=== PATIENT | male | born 1995 | race Caucasian/White ===

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

== ENCOUNTER 2017-03-09 12:32 | Emergency (ER) | payer OTHER ==
[~2017-03-09] VITALS: Ht 180.3 cm; Wt 81.2 kg
[2017-03-09] MEDS ORDERED: TAMIFLU75 MG PO (13:42)
[2017-03-09] MEDS ORDERED: ONDANSETRON ODT4 MG SL (14:50)
== END 2017-03-09 15:09 | disposition home or self-care (01) ==
LOC: ED 12:32
DX: R11.2 Nausea with vomiting, unspecified (principal); Z79.899 Other long term (current) drug therapy
CPT/HCPCS: 99283

== ENCOUNTER 2021-11-10 02:38 | Emergency (ER) | payer OTHER ==
[~2021-11-10] VITALS: Ht 180.3 cm; Wt 90.0 kg
[~2021-11-10 02:38] MED LIST changes: +ONDANSETRON ODT4 MG SL; +TAMIFLU75 MG PO
[2021-11-10] MEDS ORDERED: LORAZEPAM1 MG PO (03:02)
[2021-11-10] MEDS ORDERED: LISINOPRIL10 MG PO (03:02)
[2021-11-10] MEDS ORDERED: PROZAC40 MG PO (03:02)
[2021-11-10] MEDS ORDERED: SYSTANE 0.3-0.415 ML OPTH (03:04)
[2021-11-10] MEDS ORDERED: HYDROCODON-ACE1 EA10 PO (03:04)
--- OUTSIDE RECORDS SUMMARY | 2021-11-10 03:29 | XMS ---
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 [place] VISIT COUNT (12 MO.) 1 ARTHUR Moreno TOTAL 1 NOTE: Visits indicate total known visits. ED/UCC VISIT TRACKING (12 MO.) 11/10/2021 02:39 ARTHUR Silva [place] TYPE: Emergency COMPLAINT: - FLASH BURN INPATIENT VISIT TRACKING (12 MO.) No inpatient visits to display in this time frame [email or web address]
== END 2021-11-10 03:42 | disposition home or self-care (01) ==
LOC: ED 02:38
DX: H16.133 Photokeratitis, bilateral (principal); I10 Essential (primary) hypertension; F17.210 Nicotine dependence, cigarettes, uncomplicated; Z79.899 Other long term (current) drug therapy
CPT/HCPCS: 99283; A9270

== ENCOUNTER 2022-06-08 15:46 | Emergency (ER) | payer OTHER ==
[~2022-06-08] VITALS: Ht 177.8 cm; Wt 88.5 kg
[~2022-06-08 15:46] MED LIST changes: +HYDROCODON-ACE1 EA10 PO; +LISINOPRIL10 MG PO; +LORAZEPAM1 MG PO; +PROZAC40 MG PO; +SYSTANE 0.3-0.415 ML OPTH
--- OUTSIDE RECORDS SUMMARY | 2022-06-08 15:48 | XMS ---
PreManage Notification: JAEL SOLIS Security Bright Cutter Events No recent Security Events currently on file CRITERIA MET - BARBARAP CARE PROVIDERS -Adis- Dentist: Staff Assistant [facility] PHONE: [phone] SMOOTH LEVIN Current PHONE: Unknown [employer] has no Care Guidelines for this patient. Antonia VISIT COUNT (12 MO.) 2 ARTHUR Moreno TOTAL 2 NOTE: Visits indicate total known visits. ED/UCC VISIT TRACKING (12 MO.) 06/08/2022 15:46 ARTHUR Silva OR TYPE: Emergency COMPLAINT: - CHEST PAIN 11/10/2021 02:39 ARTHUR Silva [place] TYPE: Emergency COMPLAINT: - FLASH BURN DIAGNOSES: - Essential (primary) hypertension - Nicotine dependence, cigarettes, uncomplicated - Photokeratitis, bilateral - Other termite technician (current) drug therapy - Ocular pain, unspecified eye INPATIENT VISIT TRACKING (12 MO.) No inpatient visits to display in this time frame [email or web address]
--- NOTE | 2022-06-08 17:11 | EKG ---
[facility] [address] [place] [address] Signed Sinus tachycardia Otherwise normal ECG No previous ECGs available Confirmed by JORDAN CARRENO MD ([id number]) on 06/08/2022 5:11:12 PM Electronically Signed By: JORDAN CARRENO MD 06/08/22 1711 PATIENT NAME: PETER SOLISKen HOLLAND Electrocardiogram DATE OF : [birth year] PHYSICIAN: JORDAN CARRENO MD REPORT #: [id number] REPORT IS CONFIDENTIAL AND NOT TO BE RELEASED WITHOUT AUTHORIZATION
== END 2022-06-08 17:26 | disposition home or self-care (01) ==
LOC: ED 15:46
DX: R00.2 Palpitations (principal); I10 Essential (primary) hypertension; F17.200 Nicotine dependence, unspecified, uncomplicated; Z79.899 Other long term (current) drug therapy
CPT/HCPCS: 36415; 71045; 80053; 83735; 84484; 85025; 93005; 93010; 99285-25